=== PATIENT | male | born 1980 | race Caucasian/White ===

== ENCOUNTER 2016-07-12 10:19 | Day surgery (SDC) | payer OTHER ==
[2016-07-10 15:05] VITALS: BMI 23.1
[~2016-07-12 10:19] MED LIST: LACTATED RINGERS 1,000 ML IV SCH; LIDOCAINE 1% 20 ML VIAL (10MG/ML) FOR IV START INTRADERMA PRN
[2016-07-12 11:14] VITALS: RESP 16; TEMP 98.4
[2016-07-12] MEDS ORDERED: MIDAZOLAM 2 MG/2 ML VIAL ONE (11:32)
[2016-07-12] MEDS ORDERED: fentaNYL (PF) 50 MCG/ML 2 ML AMP ONE (11:32)
[2016-07-12] MEDS ORDERED: PROPOFOL 10 MG/ML 20 ML VIAL IV ONE (11:32)
[2016-07-12] MEDS ORDERED: KETAMINE 10 MG/ML 20 ML VIAL ONE (11:32)
--- NOTE | 2016-07-12 11:51 | P.PCN ---
Date of Procedure: 07/12/16 Preoperative Diagnosis: Postoperative Diagnosis: Procedure(s) Performed: BRIEF HISTORY: Patient is a 36-year-old, pleasant, white male, scheduled for an upper endoscopy as a part of evaluation of chronic epigastric pain for the last 5 years duration. He describes the pain to be constant and worse with certain foods. Has some nausea but no emesis. He wasn't Zantac 150 milligrams twice daily with no help. Recently was started on Protonix 40 mg twice daily. He scheduled for an upper endoscopy to evaluate further. PROCEDURE PERFORMED: Esophagogastroduodenoscopy with biopsy. PREOPERATIVE DIAGNOSIS: Chronic epigastric pain and intermittent nausea vomiting or 5 years duration. IV sedation per anesthesia. PROCEDURE: After informed consent was obtained, the patient was brought into the endoscopy unit. IV sedation was administered by Anesthesia under continuous monitoring. Initially the Olympus GIF-140 video endoscope was inserted into the mouth. Esophagus intubated without any difficulty. It was gradually advanced into the stomach and duodenum and carefully examined. The bulb and the second part of the duodenum appeared normal. Biopsies were done from the duodenum to rule out celiac disease. The scope at this time was withdrawn to the stomach, adequately insufflated with air, and upon careful examination, mucosa of the antrum, had mild gastritis and biopsies were done from this area. The body, cardia and the fundus appeared normal. The scope was then withdrawn into the esophagus. The GE junction was located at 39 cm from the incisors. There was 2 superficial erosions consistent with LA grade a reflux esophagitis. The rest of the esophagus appeared normal and the patient tolerated the procedure well. IMPRESSION: 1. Mild antral gastritis. 2. LA grade a reflux esophagitis RECOMMENDATIONS: The findings of this examination were discussed with the patient as well as his family. He was advised to follow with the biopsy results. In the meantime he will continue with Protonix 40 mg twice daily and follow antireflux measures. . Implants: Indications for Procedure: Operative Findings: Description of Procedure:
[2016-07-12 12:11] VITALS: PULSE 67
[2016-07-12 12:48] VITALS: BP 127/75
== END 2016-07-12 13:02 | disposition home or self-care (01) ==
LOC: ORWHC2ENDO 10:19
PROVIDERS: ATTEND Internal Medicine Gastroenterology
DX: K29.50 Unspecified chronic gastritis without bleeding (principal); K21.0 Gastro-esophageal reflux disease with esophagitis; J45.909 Unspecified asthma, uncomplicated; F17.200 Nicotine dependence, unspecified, uncomplicated; Z79.899 Other long term (current) drug therapy
CPT/HCPCS: 43239; 88305; 88342; J2250; J3010; J2704

== ENCOUNTER 2018-01-30 14:11 | Emergency (ER) | payer OTHER ==
[2018-01-30 16:04] VITALS: BP 150/66; PULSE 83; RESP 18; TEMP 97.9
[2018-01-30] MEDS ORDERED: methylPREDNISolone SOD SUCCI 125 MG/2 ML VIAL IM ONE (16:47)
--- NOTE | 2018-01-30 16:49 | ED ---
Skin/Abscess/FB HPI - General Chief complaint: Skin/Abscess/Foreign Body Stated complaint: Dry skin, eczema Time Seen by Provider: 01/30/18 16:15 Source: patient, RN notes reviewed Mode of arrival: ambulatory Limitations: no limitations - History of Present Illness Initial comments: 37-year-old male presented from for rash. Patient states he was given steroid cream for eczema patient states is not helping. Patient states is diffuse large areas. 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 Patient states he has not been using moisturizing cream though. Patient denies any new medications, known drug ALLERGIES or food ALLERGIES. - Related Data Previous Rx's Medication Instructions Recorded predniSONE 50 mg PO DAILY #5 tab 01/30/18 Allergies Allergy/AdvReac Type Severity Reaction Status Date / Time No Known Allergies Allergy Verified 01/30/18 16:47 Review of Systems ROS Statement: Those systems with pertinent positive or pertinent negative responses have been documented in the HPI. ROS Other: All systems not noted in ROS Statement are negative. Past Medical History Past Medical History: Asthma, GERD/Reflux, Hyperlipidemia, Hypertension Additional Past Medical History / Comment(s): blood in stool, constipation, diarrhea History of Any Multi-Drug Resistant Organisms: None Reported Past Surgical History: No Surgical Hx Reported Past Anesthesia/Blood Transfusion Reactions: Motion Sickness Past Psychological History: Anxiety, Depression Smoking Status: Current every day smoker Past Alcohol Use History: Daily Past Drug Use History: None Reported - Past Family History Mother Family Medical History: No Reported History General Exam Limitations: no limitations General appearance: alert, in no apparent distress Head exam: Present: atraumatic, normocephalic, normal inspection Neck exam: Present: normal inspection. Absent: tenderness, meningismus, lymphadenopathy Respiratory exam: Present: normal lung sounds bilaterally. Absent: respiratory distress, wheezes, rales, rhonchi, stridor Cardiovascular Exam: Present: regular rate, normal rhythm, normal heart sounds. Absent: systolic murmur, diastolic murmur, rubs, gallop, clicks GI/Abdominal exam: Present: soft, normal bowel sounds. Absent: distended, tenderness, guarding, rebound, rigid Skin exam: Present: rash (Large dry patches noted on abdomen, legs and arms.) Course Vital Signs 01/30/18 16:01 Temperature 97.9 F Pulse Rate 83 Respiratory 18 Rate Blood Pressure 150/66 O2 Sat by Pulse 95 Oximetry Medical Decision Making - Medical Decision Making 37-year-old male presented from for rash. Patient does have areas of dry patches concerning for eczema versus psoriasis. Patient will be given oral steroids, IM injection of steroids and follow-up with his PCP. Disposition Clinical Impression: Eczema Disposition: HOME SELF-CARE Condition: Stable Instructions: Eczema (ED) Additional Instructions: Use Aquaphor twice daily.Please return to the Emergency Department if symptoms worsen or any other concerns. Prescriptions: predniSONE 50 mg PO DAILY #5 tab Is patient prescribed a controlled substance at d/c from ED?: No Referrals: Amparo Gutierrez MD [STAFF PHYSICIAN] - 1-2 days Time of Disposition: 16:49
== END 2018-01-30 17:15 | disposition home or self-care (01) ==
LOC: EC 14:11
DX: L30.9 Dermatitis, unspecified (principal); F17.200 Nicotine dependence, unspecified, uncomplicated
CPT/HCPCS: 99282; 96372; J2930

== ENCOUNTER 2018-03-06 10:00 | Emergency (ER) | payer OTHER ==
[2018-03-06 10:05] VITALS: BP 144/86; PULSE 83; RESP 16; TEMP 97.5
--- NOTE | 2018-03-06 10:28 | ED ---
Skin/Abscess/FB HPI - General Chief complaint: Skin/Abscess/Foreign Body Stated complaint: rash Time Seen by Provider: 03/06/18 10:06 Source: patient, RN notes reviewed Mode of arrival: ambulatory Limitations: no limitations - History of Present Illness Initial comments: 37-year-old male presents emergency Department chief complaint of rash. 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 Patient states that he was placed on steroids did improve some but then came back. He has been using cocaine will at this time. He states it' s. Itchy. Denies any difficulty breathing or difficulty swallowing. No new products. - Related Data Previous Rx's Medication Instructions Recorded predniSONE 50 mg PO DAILY #5 tab 01/30/18 hydrOXYzine HCL [Atarax] 25 mg PO TID PRN #15 tab 03/06/18 predniSONE 10 mg PO DIRECTED #30 tab 03/06/18 Allergies Allergy/AdvReac Type Severity Reaction Status Date / Time No Known Allergies Allergy Verified 03/06/18 10:05 Review of Systems ROS Statement: Those systems with pertinent positive or pertinent negative responses have been documented in the HPI. ROS Other: All systems not noted in ROS Statement are negative. Past Medical History Past Medical History: Asthma, GERD/Reflux, Hyperlipidemia, Hypertension Additional Past Medical History / Comment(s): blood in stool, constipation, diarrhea History of Any Multi-Drug Resistant Organisms: None Reported Past Surgical History: No Surgical Hx Reported Past Anesthesia/Blood Transfusion Reactions: Motion Sickness Past Psychological History: Anxiety, Depression Smoking Status: Current every day smoker Past Alcohol Use History: Daily Past Drug Use History: None Reported - Past Family History Mother Family Medical History: No Reported History General Exam Limitations: no limitations General appearance: alert, in no apparent distress Head exam: Present: atraumatic, normocephalic, normal inspection ENT exam: Present: normal exam, normal oropharynx, mucous membranes moist Neck exam: Present: normal inspection. Absent: tenderness, meningismus, lymphadenopathy Respiratory exam: Present: normal lung sounds bilaterally. Absent: respiratory distress, wheezes, rales, rhonchi, stridor Cardiovascular Exam: Present: regular rate, normal rhythm, normal heart sounds. Absent: systolic murmur, diastolic murmur, rubs, gallop, clicks Neurological exam: Present: alert, oriented X3, CN II-XII intact Skin exam: Present: warm, dry, intact, normal color, rash (Diffuse patchy dry areas noted) Course Vital Signs 03/06/18 10:02 Temperature 97.5 F L Pulse Rate 83 Respiratory 16 Rate Blood Pressure 144/86 O2 Sat by Pulse 96 Oximetry Medical Decision Making - Medical Decision Making 37-year-old male presented for rash. This is been ongoing rash. This may be make sure eczema versus psoriasis. Patient is advised to follow-up with dermatology. Patient we given steroids, Atarax and advised to use Aquaphor. Disposition Clinical Impression: Dermatitis Disposition: HOME SELF-CARE Condition: Stable Instructions (If sedation given, give patient instructions): Dermatitis (ED) Additional Instructions: Use [id number] Aquaphor as directed.Please return to the Emergency Department if symptoms worsen or any other concerns. Prescriptions: hydrOXYzine HCL [Atarax] 25 mg PO TID PRN #15 tab PRN Reason: Itching predniSONE 10 mg PO DIRECTED #30 tab Is patient prescribed a controlled substance at d/c from ED?: No Referrals: Lizandro Gutierrez MD [STAFF PHYSICIAN] - 1-2 days Time of Disposition: 10:27
== END 2018-03-06 10:34 | disposition home or self-care (01) ==
LOC: EC 10:00
DX: L30.9 Dermatitis, unspecified (principal); F17.200 Nicotine dependence, unspecified, uncomplicated
CPT/HCPCS: 99282

== ENCOUNTER 2018-03-24 15:37 | Inpatient (IN) | payer OTHER ==
[2018-03-24 15:42] VITALS: BP 150/105; PULSE 85; RESP 18; TEMP 97.6
[2018-03-24] MEDS ORDERED: SODIUM CHLORIDE 0.9% 1,000 ML IV STA ×2 (16:09→17:51)
[2018-03-24] MEDS ORDERED: KETOROLAC 30 MG/ML 1 ML VIAL IVP STA (16:10)
--- NOTE | 2018-03-24 16:26 | ED ---
Chest Pain HPI - General Source: patient, RN notes reviewed Mode of arrival: wheelchair Limitations: no limitations - History of Present Illness MD Complaint: chest pain <Gurdeep Hernandez - Last Filed: 03/24/18 16:56> <Misha Mcgee - Last Filed: 03/24/18 18:35> - General Chief Complaint: Chest Pain Stated Complaint: chest pains Time Seen by Provider: 03/24/18 15:52 - History of Present Illness Initial Comments: This is a 38-year-old male who states he is a smoker who presents with about one week of left-sided chest pain this came progressively worse especially over today and yesterday. He states is 5/10 severity he does state he has a cough with some brown phlegm he relates this to being a smoker's cough. He states he has no personal history of heart disease or is a family history. The pain does not radiate. He denies any fevers chills or sweats. He does he was very anxious earlier today. He does admit that he is a drinker of alcohol. Patient also states he fell within the last week no definite injuries. 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 Patient also states for last several days she's not been sleeping very well. No other modifying factors at this time (Gurdeep Hernandez) - Related Data Home Medications Medication Instructions Recorded Confirmed Cetirizine HCl [Zyrtec] 10 mg PO DAILY 03/24/18 03/24/18 Triamcinolone 0.1% Cream [Kenalog 1 applicatio TOPICAL BID 03/24/18 03/24/18 0.1% Cream] hydrOXYzine HCL 10 mg PO HS PRN 03/24/18 03/24/18 Allergies Allergy/AdvReac Type Severity Reaction Status Date / Time No Known Allergies Allergy Verified 03/24/18 16:14 Review of Systems ROS Other: All systems not noted in ROS Statement are negative. <Gurdeep Hernandez - Last Filed: 03/24/18 16:56> ROS Other: All systems not noted in ROS Statement are negative. <Misha Mcgee - Last Filed: 03/24/18 18:35> ROS Statement: Those systems with pertinent positive or pertinent negative responses have been documented in the HPI. EKG Findings - EKG Results: EKG: interpreted by ERMD, sinus rhythm (Normal sinus rhythm of 87 appear interval 180 QRS duration 104 QT since QTC 376/452 some artifact is present this is an otherwise normal looking EKG.) <Gurdeep Hernandez Last Filed: 03/24/18 16:56> Past Medical History Past Medical History: Asthma, GERD/Reflux, Hyperlipidemia, Hypertension Additional Past Medical History / Comment(s): blood in stool, constipation, diarrhea History of Any Multi-Drug Resistant Organisms: None Reported Past Surgical History: No Surgical Hx Reported Past Anesthesia/Blood Transfusion Reactions: Motion Sickness Past Psychological History: Anxiety, Depression Smoking Status: Current every day smoker Past Alcohol Use History: Daily Past Drug Use History: None Reported - Past Family History Mother Family Medical History: No Reported History <Gurdeep Hernandez Filed: 03/24/18 16:56> General Exam Limitations: no limitations General appearance: alert, anxious Head exam: Present: atraumatic, normocephalic, normal inspection Eye exam: Present: normal appearance, PERRL, EOMI. Absent: scleral icterus, conjunctival injection, periorbital swelling ENT exam: Present: normal exam, mucous membranes moist Neck exam: Present: normal inspection. Absent: tenderness, meningismus, lymphadenopathy Respiratory exam: Present: normal lung sounds bilaterally, chest wall tenderness (Reproducible tenderness palpation along the left costochondral and a costosternal margins especially on the left. No step-off or crepitation.). Absent: respiratory distress, wheezes, rales, rhonchi, stridor Cardiovascular Exam: Present: regular rate, normal rhythm, normal heart sounds. Absent: systolic murmur, diastolic murmur, rubs, gallop, clicks GI/Abdominal exam: Present: soft, tenderness (Left upper quadrant tenderness palpation), normal bowel sounds. Absent: distended, guarding, rebound, rigid Extremities exam: Present: full ROM, normal capillary refill, other (Patient has some rash noted to the lower extremities). Absent: tenderness, pedal edema , joint swelling, calf tenderness Back exam: Present: normal inspection Neurological exam: Present: alert, oriented X3, CN II-XII intact Psychiatric exam: Present: normal affect, anxious Skin exam: Present: warm, dry, intact. Absent: rash <Gurdeep Hernandez Last Filed: 03/24/18 16:56> <Misha Mcgee - Last Filed: 03/24/18 18:35> - General Exam Comments Initial Comments: This a well-developed well-nourished awake alert oriented 3 male. Patient does have the smell of alcohol conjoiners on his breath (Gurdeep Hernandez) Course <Gurdeep Hernandez - Last Filed: 03/24/18 16:56> <Misha Mcgee - Last Filed: 03/24/18 18:35> Vital Signs 03/24/18 15:40 Temperature 97.6 F Pulse Rate 85 Respiratory 18 Rate Blood Pressure 150/105 O2 Sat by Pulse 96 Oximetry - Reevaluation(s) Reevaluation #1: 03/24/18 16:56 The patient's care will be endorsed to Dr. Mcgee shift change. (Gurdeep Hernandez) Chest Pain MDM <Gurdeep Hernandez - Last Filed: 03/24/18 16:56> <Misha Mcgee - Last Filed: 03/24/18 18:35> - [facility] Patient care was signed out to me by previous shift physician. Briefly, patient is here for chest pain. At signout it was explained to me that patient had atypical sounding chest pain. Previous physician had ordered cardiac workup and d-dimer. Patient's d-dimer 0.88. I had gone to examine the patient he smelled of EtOH. EtOH level was obtained with alcohol level 4026. Patient was also found to have current kinase of 2000 indicative of rhabdomyolysis. No elevated kidney markers. CT angioma was ordered due to elevated d-dimer. No pulmonary embolism noted. Patient given intravenous fluids vitamins. His glucose was within normal limits. Patient be admitted to [facility] for acute EtOH intoxication and rhabdomyolysis. C will scale was ordered. ( Misha Mcgee) Disposition <Gurdeep Hernandez - Last Filed: 03/24/18 16:56> Decision Time: 18:35 <Misha Mcgee - Last Filed: 03/24/18 18:35> Clinical Impression: Elevated ETOH level, Rhabdomyolysis Disposition: ADMITTED IP TO THIS HOSP Condition: Fair Referrals: None,Stated [Primary Care Provider] - 1-2 days
[2018-03-24 16:46] LABS: Basophils # (A) 0.1 k/uL (0-0.2); Basophils % (A) 1 %; Eosinophils # (A) 0.2 k/uL (0-0.7); Eosinophils % (A) 3 %; HGB 14.7 gm/dL (13.0-17.5); Lymphocytes # (A) 1.3 k/uL (1.0-4.8); Lymphocytes % (A) 21 %; MCH 33.1 pg (25.0-35.0); MCHC 34.3 g/dL (31.0-37.0); MCV 96.7 fL (80.0-100.0); Mean Platelet Volume 8.9; Monocytes # (A) 0.8 k/uL (0-1.0); Monocytes % (A) 13 %; Neutrophils # (A) 3.8 k/uL (1.3-7.7); Neutrophils % (A) 59 %; Platelet Count 116 k/uL (150-450); RBC 4.44 m/uL (4.30-5.90); WBC 6.4 k/uL (3.8-10.6)
[2018-03-24 17:01] LABS: ALT 97 U/L (21-72); AST 134 U/L (17-59); Albumin 4.5 g/dL (3.5-5.0); Alkaline Phosphatase 193 U/L (38-126); Amylase 55 U/L (30-110); Anion Gap 11 mmol/L; Blood Urea Nitrogen 7 mg/dL (9-20); Calcium 9.2 mg/dL (8.4-10.2); Carbon Dioxide 28 mmol/L (22-30); Chloride 106 mmol/L (98-107); Glucose 108 mg/dL (74-99); Lipase 90 U/L (23-300); Potassium 4.7 mmol/L (3.5-5.1); Sodium 145 mmol/L (137-145); Total Bilirubin 0.7 mg/dL (0.2-1.3); Total Protein 7.3 g/dL (6.3-8.2)
[2018-03-24 17:03] LABS: INR 0.9 (<1.2); Partial Thromboplastin Time 23.6 sec (22.0-30.0); Prothrombin Time 9.6 sec (9.0-12.0)
--- NOTE | 2018-03-24 17:04 | XR ---
EXAMINATION TYPE: XR chest 2V DATE OF EXAM: 03/24/2018 COMPARISON: NONE HISTORY: Chest pain TECHNIQUE: Frontal and lateral views of the chest are obtained. FINDINGS: Heart and mediastinum are normal. Lungs are clear. Diaphragm is normal. Bony thorax is int act. Pulmonary vascularity is normal. There are chest leads. IMPRESSION: Normal chest.
[2018-03-24 17:12] LABS: Alcohol 426 mg/dL
[2018-03-24 17:13] LABS: D-Dimer 0.88 mg/L FEU (<0.60)
[2018-03-24 17:16] LABS: Creatine Kinase MB 3.5 ng/mL (0.0-2.4); Troponin I <0.012 ng/mL (0.000-0.034)
[2018-03-24 17:24] LABS: Creatine Kinase 2104 U/L (55-170)
[2018-03-24] MEDS ORDERED: THIAMINE 100 MG/ML 2 ML VIAL IM STA (17:51)
[2018-03-24] MEDS ORDERED: FOLIC ACID 1 MG TAB PO STA (17:51)
[2018-03-24] MEDS ORDERED: MULTIVITAMINS, THERA 1 EACH TAB PO STA (17:51)
--- NOTE | 2018-03-24 18:27 | CT ---
EXAMINATION TYPE: CT angio chest DATE OF EXAM: 03/24/2018 5:59 PM COMPARISON: HISTORY: Elevated d-dimer and chest pain. CT DLP: 345.9 mGycm Automated exposure control for dose reduction was used. CONTRAST: CTA scan of the thorax is performed with IV Contrast, patient injected with 100 mL of Isovue 370, pul [facility] embolism protocol. . There are 3-D post processed images. FINDINGS: There is mild pulmonary emphysema. The lungs are clear of consolidation. There is no pleural effusion . There is no evidence of a pulmonary mass. Heart appears normal. There is no pericardial effusion. There is normal contrast opacification of the pulmonary arteries. I see no filling defect. There are no hilar masses. There is no mediastinal karma opathy. Thoracic aorta shows no evidence of aneurysm or dissection. Bony thorax is intact. There are no hilar masses. IMPRESSION: NO EVIDENCE OF PULMONARY EMBOLISM. MILD PULMONARY EMPHYSEMA.
[2018-03-24] MEDS ORDERED: NALOXONE 0.4 MG/ML 1 ML VIAL IV PRN (18:31)
[2018-03-24] MEDS ORDERED: ACETAMINOPHEN TAB 325 MG TAB PO PRN (18:31)
[2018-03-24] MEDS ORDERED: SODIUM CHLORIDE 0.9% 1,000 ML IV SCH (18:45)
--- NOTE | 2018-03-24 19:03 | ED ---
General Adult HPI - General Chief complaint: Chest Pain Stated complaint: chest pains Time Seen by Provider: 03/24/18 15:52 Source: patient, RN notes reviewed Mode of arrival: wheelchair Limitations: no limitations - Related Data Home Medications Medication Instructions Recorded Confirmed Cetirizine HCl [Zyrtec] 10 mg PO DAILY 03/24/18 03/24/18 Triamcinolone 0.1% Cream [Kenalog 1 applicatio TOPICAL BID 03/24/18 03/24/18 0.1% Cream] hydrOXYzine HCL 10 mg PO HS PRN 03/24/18 03/24/18 Allergies Allergy/AdvReac Type Severity Reaction Status Date / Time No Known Allergies Allergy Verified 03/24/18 16:14 Review of Systems ROS Statement: Those systems with pertinent positive or pertinent negative responses have been documented in the HPI. ROS Other: All systems not noted in ROS Statement are negative. Past Medical History Past Medical History: Asthma, GERD/Reflux, Hyperlipidemia, Hypertension Additional Past Medical History / Comment(s): blood in stool, constipation, diarrhea History of Any Multi-Drug Resistant Organisms: None Reported Past Surgical History: No Surgical Hx Reported Past Anesthesia/Blood Transfusion Reactions: Motion Sickness Past Psychological History: Anxiety, Depression Smoking Status: Current every day smoker Past Alcohol Use History: Daily Past Drug Use History: None Reported - Past Family History Mother Family Medical History: No Reported History General Exam Limitations: no limitations General appearance: alert, anxious Course Vital Signs 03/24/18 15:40 Temperature 97.6 F Pulse Rate 85 Respiratory 18 Rate Blood Pressure 150/105 O2 Sat by Pulse 96 Oximetry Medical Decision Making - Lab Data Result diagrams: 03/24/18 16:30 03/24/18 16:30 Lab Results 03/24/18 03/24/18 03/24/18 Range/Units 16:30 16:30 16:30 WBC 6.4 (3.8-10.6) k/uL RBC 4.44 (4.30-5.90) m/uL Hgb 14.7 (13.0-17.5) gm/dL Hct 43.0 (39.0-53.0) % MCV 96.7 (80.0-100.0) fL MCH 33.1 (25.0-35.0) pg MCHC 34.3 (31.0-37.0) g/dL RDW 12.0 (11.5-15.5) % Plt Count 116 L (150-450) k/uL Neutrophils % 59 % Lymphocytes % 21 % Monocytes % 13 % Eosinophils % 3 % Basophils % 1 % Neutrophils # 3.8 (1.3-7.7) k/uL Lymphocytes # 1.3 (1.0-4.8) k/uL Monocytes # 0.8 (0-1.0) k/uL Eosinophils # 0.2 (0-0.7) k/uL Basophils # 0.1 (0-0.2) k/uL PT (9.0-12.0) sec INR (<1.2) APTT (22.0-30.0) sec D-Dimer (<0.60) mg/L FEU Sodium 145 (137-145) mmol/L Potassium 4.7 (3.5-5.1) mmol/L Chloride 106 (98-107) mmol/L Carbon Dioxide 28 (22-30) mmol/L Anion Gap 11 mmol/L BUN 7 L (9-20) mg/dL Creatinine 0.93 (0.66-1.25) mg/dL Est GFR (CKD-EPI)AfAm >90 (>60 ml/min/1.73 sqM) Est GFR (CKD-EPI)NonAf >90 (>60 ml/min/1.73 sqM) Glucose 108 H (74-99) mg/dL Calcium 9.2 (8.4-10.2) mg/dL Magnesium 2.0 (1.6-2.3) mg/dL Total Bilirubin 0.7 (0.2-1.3) mg/dL AST 134 H (17-59) U/L ALT 97 H (21-72) U/L Alkaline Phosphatase 193 H (38-126) U/L Total Creatine Kinase 2104 H* (55-170) U/L CK-MB (CK-2) 3.5 H (0.0-2.4) ng/mL CK-MB (CK-2) Rel Index Troponin I <0.012 (0.000-0.034) ng/mL NT-Pro-B Natriuret Pep pg/mL Total Protein 7.3 (6.3-8.2) g/dL Albumin 4.5 (3.5-5.0) g/dL Amylase 55 (30-110) U/L Lipase 90 (23-300) U/L Serum Alcohol 426 H* mg/dL 03/24/18 03/24/18 Range/Units 16:30 16:30 WBC (3.8-10.6) k/uL RBC (4.30-5.90) m/uL Hgb (13.0-17.5) gm/dL Hct (39.0-53.0) % MCV (80.0-100.0) fL MCH (25.0-35.0) pg MCHC (31.0-37.0) g/dL RDW (11.5-15.5) % Plt Count (150-450) k/uL Neutrophils % % Lymphocytes % % Monocytes % % Eosinophils % % Basophils % % Neutrophils # (1.3-7.7) k/uL Lymphocytes # (1.0-4.8) k/uL Monocytes # (0-1.0) k/uL Eosinophils # (0-0.7) k/uL Basophils # (0-0.2) k/uL PT 9.6 (9.0-12.0) sec INR 0.9 (<1.2) APTT 23.6 (22.0-30.0) sec D-Dimer 0.88 H (<0.60) mg/L FEU Sodium (137-145) mmol/L Potassium (3.5-5.1) mmol/L Chloride (98-107) mmol/L Carbon Dioxide (22-30) mmol/L Anion Gap mmol/L BUN (9-20) mg/dL Creatinine (0.66-1.25) mg/dL Est GFR (CKD-EPI)AfAm (>60 ml/min/1.73 sqM) Est GFR (CKD-EPI)NonAf (>60 ml/min/1.73 sqM) Glucose (74-99) mg/dL Calcium (8.4-10.2) mg/dL Magnesium (1.6-2.3) mg/dL Total Bilirubin (0.2-1.3) mg/dL AST (17-59) U/L ALT (21-72) U/L Alkaline Phosphatase (38-126) U/L Total Creatine Kinase (55-170) U/L CK-MB (CK-2) (0.0-2.4) ng/mL CK-MB (CK-2) Rel Index Troponin I (0.000-0.034) ng/mL NT-Pro-B Natriuret Pep 48 pg/mL Total Protein (6.3-8.2) g/dL Albumin (3.5-5.0) g/dL Amylase (30-110) U/L Lipase (23-300) U/L Serum Alcohol mg/dL Disposition Clinical Impression: Elevated ETOH level, Rhabdomyolysis Disposition: Left Against Medical Advice Condition: Fair Is patient prescribed a controlled substance at d/c from ED?: No Time of Disposition: 19:03
== END 2018-03-24 19:08 | disposition left against medical advice (07) | DRG 558 ==
LOC: EC 15:37 → 4SSUR 18:33
PROVIDERS: ADMIT Internal Medicine; ATTEND Internal Medicine
DX: M62.82 Rhabdomyolysis (principal); F10.229 Alcohol dependence with intoxication, unspecified; Y90.8 Blood alcohol level of 240 mg/100 ml or more; E78.5 Hyperlipidemia, unspecified; F17.210 Nicotine dependence, cigarettes, uncomplicated; I10 Essential (primary) hypertension; J41.0 Simple chronic bronchitis; J45.909 Unspecified asthma, uncomplicated; K21.9 Gastro-esophageal reflux disease without esophagitis; R21 Rash and other nonspecific skin eruption; Z79.899 Other long term (current) drug therapy
CPT/HCPCS: 36415; 71046; 71275; 80053; 80320; 82150; 82550; 82553; 83690; 83735; 83880; 84484; 85025; 85379; 85610; 85730; 93005; 96361; 96374; 99285